=== PATIENT | female | born 1965 | race Caucasian/White ===

== ENCOUNTER 2019-03-14 08:37 | Inpatient (IN) ==
[2019-03-14] MEDS ORDERED: TORADOL IV ONE (09:20)
[2019-03-14] MEDS ORDERED: NS 500 ML IV ONE (09:20)
[2019-03-14] MEDS ORDERED: CLINDAMYCIN 600 MG/D5W 600 MG/50 ML IVPB IV ONE (09:20)
--- NOTE | 2019-03-14 09:50 | EKG Report ---
Test Performed on : 03/14/2019 08:49:47 AM Test Reason : tachycardia Blood Pressure : / mmHG Vent. Rate : 113 BPM Atrial Rate : 113 BPM P-R Int : 148 ms QRS Dur : 084 ms QT Int : 302 ms P-R-T Axes : 046 -04 050 degrees QTc Int : 414 ms Sinus tachycardia. Possible Left atrial enlargement Borderline ECG No previous ECGs available Unconfirmed Result
[2019-03-14 10:01] LABS: BASO# 0.03 X1000 (0.0-0.2); BASO% 0.2 % (0.0-0.8); EOS# 0.19 X1000 (0.0-0.7); EOS% 1.1 % (0.0-10.0); HEMATOCRIT 39.9 % (37.0-47.0); HEMOGLOBIN 12.2 g/dL (12.0-16.0); IMM GRAN# 0.05 X1000 (0.0-0.04); IMM GRAN% 0.3 % (0.0-0.5); LYMPH# 1.73 X1000 (1.2-3.4); LYMPH% 10.2 % (20.5-51.1); MCH 26.7 PG (27-31); MCHC 30.6 g/dL (33-37); MCV 87.3 FL (81-99); MPV 11.1 FL (7.4-10.4); NEUT# 13.83 X1000 (1.4-6.5); NEUT% 81.2 % (42.2-75.2); PLT 260 X1000 (130-400); RBC 4.57 XMIL (4.2-5.4); RDW 14.8 % (11.5-14.5); WBC 17.03 X1000 (4.8-10.8)
[2019-03-14 10:41] LABS: AGAP 14; ALKALINE PHOSPHATASE 81 U/L (32-104); BUN 6 mg/dL (8-22); CALCIUM 9.2 mg/dL (8.8-10.2); CHLORIDE 105 mmol/L (98-107); COSMO 281; CREATININE 0.7 mg/dL (0.5-0.9); ESTIMATED GFR > 60; GLUCOSE 110 mg/dL (70-104); GOT 15 U/L (10-30); GPT 12 U/L (10-36); SODIUM 142 mmol/L (136-145); TCO2 24 mmol/L (25-35); TOTAL PROTEIN 7.9 g/dL (6.3-8.3)
[2019-03-14 10:42] LABS: MAGNESIUM 1.7 mg/dL (1.5-2.7)
[2019-03-14 10:47] LABS: URINE SOURCE CLEAN CATCH
[2019-03-14 10:58] LABS: BILIRUBIN URINE NEGATIVE (NEGATIVE); BLOOD URINE SMALL (NEGATIVE); COLOR YELLOW; GLUCOSE URINE NEGATIVE (NEGATIVE); KETONE URINE NEGATIVE (NEGATIVE); LEUKOCYTES URINE NEGATIVE (NEGATIVE); NITRITE URINE NEGATIVE (NEGATIVE); PH URINE 6.5; PROTEIN URINE TRACE mg/dL (NEGATIVE); SP GRAVITY URINE 1.018; TURBIDITY URINE CLEAR (CLEAR); UR EPITHELIAL CELLS <10 /HPF (<10); URINE BACTERIA NEGATIVE /HPF; URINE RBC <10 /HPF (<10); URINE WBC <10 /HPF (<10); UROBILINOGEN URINE NORMAL (NORMAL)
[2019-03-14 11:02] LABS: INR 0.97; PROTIME 13.4 Seconds (11.0-16.0)
[2019-03-14 11:03] LABS: PTT 30.6 Seconds (22.3-41.8)
--- NOTE | 2019-03-14 11:21 | Diag Imaging Result Doc PS360 ---
EXAM: CT ABD/PELVIS W/IV CONT ONLY HISTORY: pelvic cellulitis TECHNIQUE: CT abdomen and pelvis with intravenous contrast, but without oral contrast. COMPARISON: None. FINDINGS: No calcified gallstones or adjacent inflammation. No hepatic abnormality. Normal spleen, pancreas, and adrenal glands. Small area of scarring to the right kidney. Small left renal cysts. No hydronephrosis. Moderate atherosclerosis. No aortic aneurysm. Normal appendix. No inflammation about the cecum and appendix. No bowel obstruction. There is stool throughout the colon. The urinary bladder is not distended. Normal uterus and ovaries. There is subcutaneous edema and inflammation with skin thickening in the anterior left pelvic region. No well-defined fluid collection. No air within this. There are several small left inguinal lymph nodes. IMPRESSION: 1.Cellulitis in the superficial fat of the left anterior pelvic region 2.Mild constipation This exam was performed using automated exposure control, adjustment of mA or kV according to patient size, and/or use of iterative reconstruction technique. Electronically signed by Leonardo Pacheco 03/14/2019 11:19 AM
--- NOTE | 2019-03-14 12:58 | PROVIDER DOCUMENTATION ---
This chart was entered by Aster Baron Scribe, acting as scribe for Holly Juan CRNP. HPI-General Adult - General Chief Complaint: Groin Pain Stated Complaint: RADHA ON GROIN Time Seen by Provider: 03/14/19 08:43 Source: patient Allergies/Adverse Reactions: Patient Allergies Allergy/AdvReac Type Severity Reaction Status Date / Time No Known Allergies Allergy Verified 03/14/19 08:44 - History of Present Illness -Gen Adult Nature of Presenting Problems: 53yof presents to ED cc pain, swelling, and erythema to left groin area since . Denies fever or any other complaints. Pt non-toxic in appearance. Location of Pain/Injury: reports: genitalia (left groin area) Quality of Pain: reports: aching Severity: reports: moderate Onset/Duration: reports: 5 days ago Timing: reports: still present Modifying Factors: improves with: nothing Associated Symptoms: reports: denies symptoms Similar Symptoms Previously?: No Recently seen or treated by another doctor?: No Review of Systems - Adult - REVIEW OF SYSTEMS - ADULT Constitutional: reports: no symptoms reported. denies: chills, fever, fatique Eyes: reports: no symptoms reported Ears, Nose, Mouth & Throat: reports: no symptoms reported Cardiovascular: reports: no symptoms reported Respiratory: reports: no symptoms reported Gastrointestinal: reports: no symptoms reported. denies: diarrhea, nausea, vomiting Genitourinary: reports: no symptoms reported Musculoskeletal: reports: no symptoms reported Integumentary: reports: see HPI, other (pain and erythema to left groin area) Neurological: reports: no symptoms reported Psychiatric: reports: no symptoms reported Endocrine: reports: no symptoms reported Hematologic/Lymphatic: reports: no symptoms reported Allergic/Immunologic: reports: no symptoms reported All Other Systems: Reviewed and Negative Past History - Adult - PAST MEDICAL HISTORY-ADULT Review of Records: reports: Nursing Assessment Review, Medications Reviewed, Social history reviewed & non-contributory. Major Childhood Illnesses: reports: denies history Cardiovascular: reports: denies history Respiratory: reports: denies history Gastrointestinal: reports: denies history Obstetrical/Gynecological: reports: denies history Genitourinary: reports: denies history Musculoskeletal: reports: denies history Neurological: reports: denies history Endocrine/Immune: reports: denies history Other Conditions: reports: denies history - PRIOR SURGERIES/PROCEDURES Surgical/Procedure History: reports: reviewed, not pertinent - IMMUNIZATION STATUS Childhood Immunizations: See Nurse Assessment Flu Vaccine: See Nurse Assessment - FAMILY HISTORY Family History: reviewed, not pertinent - SOCIAL HISTORY Smoking: cigarettes, greater than 1 pack/day Provider spent 3-5 mins advising pt. on dangers of tobacco.: Discussed manners to quit use, and f/u contacts for add'l counseling. Physical Exam-General - PHYSICAL EXAM-ADULT Initial Vital Signs Reviewed: Yes - CONSTITUTIONAL General Appearance: alert, no apparent distress. negative: anxious, lethargic, slow to respond - EYES Eyes: PERRL/EOMI, pink conjunctivae - HEAD, EARS, NOSE, MOUTH & THROAT HENMT: normocephalic/atraumatic, moist mucous membranes - NECK Neck: full range of motion, supple, normal inspection - RESPIRATORY Respiratory: chest non-tender, lungs clear, normal breath sounds, no pleuratic chest pain, no respiratory distress, no accessory muscle use. negative: str idor, wheezing - CARDIOVASCULAR Cardiovascular: normal peripheral pulses, regular rate, rhythm, no edema, tachycardia. negative: bradycardia - GASTROINTESTINAL (ABDOMEN) Abdominal Exam: normal bowel sounds, non tender, soft - GENITOURINARY Female Genitalia/Pelvic Exam: other (swelling/erythema left groin area that measures 5in wx 3in h with erythema and pustule in the center of area) - MUSCULOSKELETAL Back Exam: normal inspection Extremity: normal range of motion, normal gait, normal inspection, erythema (see note above) - SKIN Integumentary: normal color, warm/dry, erythema (left groin area), tenderness (left groin area). negative: diaphoresis, jaundice - NEUROLOGIC Neurologic: grossly normal, no motor/sensory deficits - PSYCHIATRIC Psych/Mental Status: normal mood/affect, normal thought content, normal thought process, oriented x 3. negative: anxious, disheveled Progress - PLAN OF CARE/RESULTS Progress/Plan/Lab Results: Vital Signs - 8 hr 03/14/19 08:39 Temperature 97.9 F Pulse Rate 127 H Respiratory Rate 18 Blood Pressure 180/113 O2 Sat by Pulse Oximetry 96 Orders Category Date Time Status Cardiac Monitoring DIRECTED Care 03/14/19 08:45 Active EKG [EKG] Stat Ther 03/14/19 08:44 Ordered Result Diagrams: 03/14/19 09:43 03/14/19 09:43 - EKG 1 Time of EKG reading by physician:: 08:54 EKG Read and Signed by:: Vinay Duncan EKG Interpretation (*Must complete 3 of following elements*): Abnormal (possible left atrial enlargement) Rate: 113 Rhythm: Sinus Tachy QRS: normal CO Interval: normal - CT/MRI 1 CT Study: Abdomen, Pelvis Impression: See EMR Report (IMPRESSION: 1.Cellulitis in the superficial fat of the left anterior pelvic region 2.Mild constipation This exam was performed using automated exposure control, adjustment of mA or kV according to patient size, and/or use of iterative reconstruction technique. Electronically signed by Leonardo Pacheco 03/14/2019 11:19 AM) - CONSULTS/PCP/HOSPITALIST Notification #1 *Consult/PCP/Hospitalist*: Dr. Conley Time Discussed: 12:54 Reason/Comments: admission- left groin cellulitis Consult Disposition: Will see in ED, Admit Departure - Departure Date of Disposition Decision: 03/14/19 Time of Disposition Decision: 12:54 DIAGNOSIS: Cellulitis Qualifiers: Site of cellulitis: extremity Site of cellulitis of extremity: lower extremity Laterality: left Qualified Code(s): L03.116 - Cellulitis of left lower limb Disposition: ADMITTED INPATIENT 09 Certified Medical Emergency: Emergent Condition: Stable Additional Instructions: ED Follow Up Instructions: You have been treated by a care provider in the Emergency Department. These instructions are being provided to you so you can have an understanding of how to care for yourself upon discharge. Upon discharge from the Emergency Department, you are responsible for making arrangements for follow-up care by a physician of your choice. Take all prescribed medications as directed. Return to the Emergency Department immediately for any new or worsening symptoms. You may call the Physician Referral phone number at [phone] to obtain a list of Physicians who are taking new patients. Referrals and Follow-Ups: None,PCP [Primary Care Provider] - Discharge Education: Steps to Quit Smoking, [id number], Cellulitis, Adult, [id number] - Critical Care Note This patient required my direct & personal management of CC.: No Attestation - Physician/ MARTHA Attestation Patient care was provided by Advanced Practice Provider:: Yes Advanced Practice Provider:: Holly Juan Advanced Practice Provider documentation review:: The Mid-level provider documentation, treatment plan and medical decision making was reviewed by the physician who agrees with all treatment and medical decision making by the MLP. The physician spent face to face time with patient:: No Advanced Practice Provider documentation review:: Supervising physician onsite and consulted in the evaluation and care of this patient. The physician did not have a face to face encounter with the patient. This chart was documented by the indicated scribe, (Aster Baron Scribe) and accurately reflects the services I performed and decisions made by , Holly Conn, BANDAR, as attested by the provider's signature.
[2019-03-14] MEDS ORDERED: TYLENOL PO PRN (13:31)
[2019-03-14] MEDS ORDERED: ZOFRAN IV PRN (13:31)
[2019-03-14] MEDS ORDERED: VANCOMYCIN IV PER PHARMACY MISC SCH (13:45)
[2019-03-14] MEDS: NS 1,000 ML IV SCH (13:56)
[2019-03-14] MEDS: NORCO-7.5 PO PRN ×2 (13:56→21:28)
[2019-03-14] MEDS: ZOSYN 3.375 GM in NS 50 ML IV SCH ×2 (13:57→20:06)
[2019-03-14] MEDS ORDERED: MIRALAX PO ONE (14:42)
[2019-03-14] MEDS ORDERED: VANCOMYCIN 2,000 MG in NS 500 ML IV ONE (15:00)
--- NOTE | 2019-03-14 15:12 | HISTORY AND PHYSICAL ---
PRIMARY CARE PHYSICIAN: None. CHIEF COMPLAINT: Left groin cellulitis. HISTORY OF PRESENT ILLNESS: Ms. Arreola is a 53-year-old, female who presents today to the ER with complaints of left groin pain that started approximately 4 days ago. The patient started noticing that she started having pain to her left groin area. She also noticed a large reddened area that was edematous. She has also been having fever and chills, headache, and a cough. The patient subsequently decided to come to the ER at this time. The patient denies any congestion, dizziness neck pain, excessive thirst, chest pain, palpitations, orthopnea, PND, dyspnea, nausea, vomiting, diarrhea, constipation, dysuria, hematuria, muscle pain or weakness, syncope, or any other pertinent symptoms at this time. REVIEW OF SYSTEMS: A 10-point review of systems has been obtained. All are negative except what is stated above in the HPI. PAST MEDICAL HISTORY: None. PAST SURGICAL HISTORY: Tubal ligation. FAMILY HISTORY: Mom, diabetes and hypertension. Father, diabetes and hypertension. SOCIAL HISTORY: The patient lives in [place], [place]. She works in [employer]. She smokes a half a pack of cigarettes per day and has for greater than 30 years. She denies any alcohol or illicit drug use. She denies any use of oxygen, CPAP, or BiPAP use. PHARMACY: [facility] in [place]. ALLERGIES: No known drug allergies. HOME MEDICATIONS: None. PHYSICAL EXAMINATION: VITAL SIGNS: Temperature 100.2 degrees, pulse rate 118, respiratory rate 20, blood pressure 131/70, O2 saturation 100% on room air. GENERAL: This is a 53-year-old, female. She is lying on the ER stretcher. She is well nourished and well developed. She is in somewhat acute distress from pain to the left groin. HEENT: Atraumatic, normocephalic. Pupils equal, round, reactive to light. Mucous membranes are moist. NECK: Supple. No lymphadenopathy. Trachea midline. No JVD. CV: Regular rate and rhythm. No murmurs, gallops, or rubs appreciated. RESPIRATORY: Lung sounds clear. Equal chest excursion. Respirations nonlabored. No accessory muscle usage. GI: Abdomen was soft, nontender, nondistended. Bowel sounds present x4. : There is severe tenderness noted to the left side of the groin. The patient is voiding without difficulty. NEUROLOGIC: The patient is awake, alert, oriented, and able to follow all commands appropriately. MUSCULOSKELETAL: Full distal strength noted. No abnormalities. No deformities. EXTREMITIES: No clubbing. No cyanosis. There is edema noted to the left groin. DP and PT pulses are present and palpable. SKIN: Warm, dry. There is a large amount of edema and erythema noted to the left groin area. There is no diaphoresis. LABS/DIAGNOSTICS: White blood cell count 17.03, hemoglobin 12.2, hematocrit 39.9, platelet count 260,000. Sodium 142, potassium 4.0, carbon dioxide 24, BUN 6, creatinine 0.7, estimated GFR greater than 60, glucose 110, magnesium 1.7. CT of the abdomen and pelvis does show a cellulitis in the superficial fat of the left anterior pelvic region, and does show mild constipation. ASSESSMENT: 1. Left groin cellulitis. 2. Leukocytosis. 3. Dehydration. 4. Constipation. 5. Tobacco dependency. PLAN: We will admit this patient to the medical floor. We will start this patient on IV fluid hydration. We are going to consult surgery. Dr. Pearson is on-call. He has been notified by Dr. Colney. We will start this patient on vancomycin and Zosyn IV. We will repeat lactates per protocol. We will provide this patient with [place] for pain and Tylenol for fever. We will give her Zofran p.r.n. for nausea. I will start her on a regular diet as tolerated. A routine culture was ordered of her groin wound. I will place her on water well driller, provide her with supplemental O2, vital signs q.4, SCDs for DVT prophylaxis, Prilosec for gastrointestinal prophylaxis. I provided 5 minutes of smoking cessation information and I have provided her with a nicotine patch. I have started her on MiraLAX daily for her constipation. I have ordered repeat labs for in the morning. All other further treatment pending hospital course and laboratory data. Dictated by BANDAR Melendrez for Elmer Conley MD cc: Elmer Conley MD
[2019-03-14] MEDS: NICODERM PATCH TD SCH (16:53)
--- NOTE | 2019-03-14 19:07 | GENERAL SURGERY CONSULTATION ---
DATE: 03/14/2019 REQUESTING PHYSICIAN: Dr. Conley. REASON FOR CONSULTATION: Left groin abscess. HISTORY OF PRESENT ILLNESS: A 53-year-old female who presented to the emergency department with left groin pain starting 4 days prior to presentation. She had noted some erythema and redness in the area. She had a CT scan that showed cellulitis. Prior to me visiting and evaluating her, she had some spontaneous drainage of purulence. She denies any other symptoms at this point. She does have tenderness in this area. PAST MEDICAL HISTORY: None. PAST SURGICAL HISTORY: Tubal ligation. SOCIAL HISTORY: Current smoker. ALLERGIES: None. HOME MEDICATIONS: In the MAR and reviewed. FAMILY HISTORY: Positive for diabetes and hypertension. REVIEW OF SYSTEMS: A full 14 systems reviewed and negative except as specified in HPI. PHYSICAL EXAMINATION: Vital Signs: Patient is currently afebrile. Her vital signs are stable. General: No acute distress. Alert and interactive female looks stated age. HEENT: Normocephalic, atraumatic. Pupils equal, round, and reactive to light. Mucous membranes moist. Oropharynx benign. Neck: Supple. Trachea midline. Cardiovascular: Regular rate and rhythm. Lungs: Grossly clear. Abdomen: Soft, nontender, nondistended. Pelvic: Groin, evaluated with air carrier inspector guidance. There is an area in the left groin with erythema, induration, and some spontaneous drainage of purulence. Extremities: Moves all extremities. Neurologic: Grossly intact. Skin: No signs of jaundice. Vascular: All extremities perfused. LABORATORY: White blood cell count 17, hematocrit 39, and platelet count 260,000. Remainder of labs reviewed. CT scan independently reviewed and radiology report reviewed. ASSESSMENT AND PLAN: A 53-year-old female with left groin abscess. Left groin abscess. At this time, it is spontaneously draining. We will keep warm compresses to the area. We will continue to monitor and try to express more purulence and monitor how she does. We did send the wound off for culture. cc: Reggie Pearson MD
--- NOTE | 2019-03-14 19:53 | HISTORY AND PHYSICAL ---
ADDENDUM: The patient was seen and examined by myself. Full note dictated and discussed with nurse practitioner. Patient presented to the hospital with left-sided groin pain. She states that 3 days ago she started noting some pain and swelling in her left groin region. Today it became severe, unrelenting and she reports she came to the hospital. She does have a very tender area. Hard to truly examine due to her current pain. We are going to admit to the hospital, place her on antibiotics and we will ask surgery to evaluate and see if drainage is possible. cc: Elmer Conley MD
[2019-03-15] MEDS: NS 1,000 ML IV SCH ×3 (03:23→14:14)
[2019-03-15] MEDS: ZOSYN 3.375 GM in NS 50 ML IV SCH ×4 (03:24→20:39)
[2019-03-15] MEDS: NORCO-7.5 PO PRN ×3 (05:29→20:39)
--- NOTE | 2019-03-15 06:31 | GENERAL SURGERY PROGRESS NOTE ---
DATE: 03/15/2019 SUBJECTIVE: Patient is feeling better. OBJECTIVE: Vital Signs: Patient is currently afebrile. Her vital signs are stable. General: No acute distress. Cardiovascular: Regular rate and rhythm. HEENT: Normocephalic, atraumatic. Pupils equal, round, reactive to light. Mucous membranes moist. Oropharynx benign. Neck: Supple. Trachea midline. Lungs: Grossly clear. Abdomen: Soft, nontender. Left groin area seems to be improving. Erythema is improving. There is less drainage, less induration. Extremities: Moves all extremities. Neurologic: Grossly intact. Skin: As noted above. Vascular: All extremities perfused. LABORATORY: Pending from this morning. Gram stain also appears to be pending. ASSESSMENT AND PLAN: A 53-year-old female with left groin abscess. Left groin abscess. At this time, it spontaneously drained but we will continue to monitor. The erythema seems to be improving so we will keep her on the broad-spectrum antibiotics until we get further speciation. cc: Reggie Pearson MD
[2019-03-15] MEDS: PRILOSEC PO SCH (06:32)
[2019-03-15 07:10] LABS: HEMATOCRIT 33.5 % (37.0-47.0); HEMOGLOBIN 9.9 g/dL (12.0-16.0); MCHC 29.6 g/dL (33-37); MCV 87.9 FL (81-99); MPV 10.8 FL (7.4-10.4); RBC 3.81 XMIL (4.2-5.4); WBC 14.2 X1000 (4.8-10.8)
[2019-03-15 07:26] LABS: AGAP 11; BUN 6 mg/dL (8-22); CALCIUM 8.5 mg/dL (8.8-10.2); CHLORIDE 108 mmol/L (98-107); COSMO 283; CREATININE 0.7 mg/dL (0.5-0.9); ESTIMATED GFR > 60; GLUCOSE 108 mg/dL (70-104); POTASSIUM 3.6 mmol/L (3.5-5.1); SODIUM 143 mmol/L (136-145); TCO2 24 mmol/L (25-35)
[2019-03-15] MEDS: MIRALAX PO SCH (08:40)
[2019-03-15] MEDS: NICODERM PATCH TD SCH (08:40)
[2019-03-15] MEDS: VANCOMYCIN 1,700 MG in NS 250 ML IV SCH (11:43)
[2019-03-16] MEDS: ZOSYN 3.375 GM in NS 50 ML IV SCH ×4 (01:13→22:05)
[2019-03-16] MEDS: NS 1,000 ML IV SCH ×4 (01:13→13:40)
[2019-03-16] MEDS: VANCOMYCIN 1,700 MG in NS 250 ML IV SCH ×2 (02:11→22:07)
[2019-03-16] MEDS: NORCO-7.5 PO PRN ×3 (02:15→22:32)
[2019-03-16 06:01] LABS: AGAP 12; ALKALINE PHOSPHATASE 58 U/L (32-104); BUN 4 mg/dL (8-22); CALCIUM 8.2 mg/dL (8.8-10.2); CHLORIDE 111 mmol/L (98-107); COSMO 285; CREATININE 0.6 mg/dL (0.5-0.9); ESTIMATED GFR > 60; GLUCOSE 121 mg/dL (70-104); GOT 12 U/L (10-30); GPT 12 U/L (10-36); MAGNESIUM 1.8 mg/dL (1.5-2.7); POTASSIUM 3.5 mmol/L (3.5-5.1); SODIUM 144 mmol/L (136-145); TCO2 21 mmol/L (25-35); TOTAL BILIRUBIN < 0.15 mg/dL (0.20-1.00)
[2019-03-16 06:11] LABS: HEMATOCRIT 31.2 % (37.0-47.0); HEMOGLOBIN 9.3 g/dL (12.0-16.0); MCH 26.3 PG (27-31); MCHC 29.8 g/dL (33-37); MCV 88.4 FL (81-99); MPV 10.7 FL (7.4-10.4); RBC 3.53 XMIL (4.2-5.4); RDW 14.7 % (11.5-14.5); WBC 10.04 X1000 (4.8-10.8)
--- NOTE | 2019-03-16 07:59 | PROGRESS NOTE ---
DATE: 03/16/2019 SUBJECTIVE: The patient notes that her left groin area is actually improving. States that it popped and started draining significantly on its own. OBJECTIVE: Vital Signs: Temp 96.9, pulse 77, respiratory rate 18, BP 128/72. General: The patient is very pleasant. She is in no distress. HEENT: Normocephalic. Neck: Supple. Cardiovascular: Regular rate. Chest: Clear. Abdomen: Soft. Extremities: Moves all extremities. Skin: Her left groin area is still swollen, but much less tender, much less indurated. ASSESSMENT: 1. Left groin cellulitis. 2. Chronic tobacco abuse. 3. Leukocytosis. PLAN: Will continue antibiotics, vancomycin and Zosyn, until culture returns. Again discussed with the patient the perils of smoking. cc: Elmer Conley MD
[2019-03-16] MEDS: MIRALAX PO SCH (10:29)
[2019-03-16] MEDS: NICODERM PATCH TD SCH (10:29)
[2019-03-16] MEDS: PRILOSEC PO SCH (10:30)
--- NOTE | 2019-03-16 10:36 | GENERAL SURGERY PROGRESS NOTE ---
DATE: 03/16/2019 SUBJECTIVE: The patient seems to be doing okay. She is able to express some in the shower. Overall, the area is getting better. OBJECTIVE: Vital Signs: The patient is currently afebrile. Her vital signs stable. General: On exam, in no acute distress. HEENT: Normocephalic, atraumatic. Pupils equal, round, react to light. Mucous membranes moist. Oropharynx benign. Neck: Supple. Trachea midline. Cardiovascular: Regular rate and rhythm. Lungs: Grossly clear. Abdomen: Soft, nontender, nondistended. Extremities: Left groin area seems to be improving as far as erythema and induration. Still draining some purulence serosanguineous fluid. She moves all extremities. Neurologic: Grossly intact. Skin: No signs of jaundice, but wound as noted above. Vascular: All extremities perfused. LABORATORY DATA: White blood count is now normal, hematocrit 32, platelet count 230,000. Remainder of labs reviewed. ASSESSMENT AND PLAN: A 53-year-old female with left groin abscess. Left groin abscess: At this time, I think she could probably be transitioned over to oral antibiotics. Her white blood cell count returned to normal. She would probably do well with something like clindamycin or Bactrim, but we will continue to monitor her while she is in the hospital and continue local wound care. cc: Reggie Pearson MD
--- NOTE | 2019-03-16 22:12 | PROGRESS NOTE ---
DATE: 03/16/2019 SUBJECTIVE: The patient notes that her left inguinal region has much less tenderness. Still draining copious amounts of fluid. PHYSICAL EXAM: Vital signs: Temperature 97.8, pulse 71, respiratory 20, BP 138/71. General: Patient is a very pleasant female who is in no current distress. HEENT: Normocephalic. Neck: Supple. Cardiovascular: Regular rate. Chest: Clear. Abdomen: Soft. Extremities: Moves all extremities. Skin: Left inguinal region is draining. It is color depositing machine tender, but much less indurated. ASSESSMENT: 1. Left groin cellulitis. 2. Leukocytosis, resolved. White count from 14 down to 10. 3. Anemia of chronic disease. 4. Chronic tobacco abuse. PLAN: We are going to continue antibiotics until culture results and then hopefully if possible can transition her home on oral antibiotics. The patient understands and will continue to follow up cc: Elmer Conley MD MTDD
[2019-03-17] MEDS: NS 1,000 ML IV SCH ×2 (00:15→08:49)
[2019-03-17] MEDS: ZOSYN 3.375 GM in NS 50 ML IV SCH (02:15)
[2019-03-17] MEDS: PRILOSEC PO SCH (06:57)
[2019-03-17 08:05] VITALS: BP 137/70
[2019-03-17] MEDS: NICODERM PATCH TD SCH (08:47)
[2019-03-17] MEDS: MIRALAX PO SCH (08:48)
--- NOTE | 2019-03-17 09:19 | GENERAL SURGERY PROGRESS NOTE ---
DATE: 03/17/2019 SUBJECTIVE: Patient seems to be doing okay. Less drainage from her groin. OBJECTIVE: Vital Signs: The patient is currently afebrile. Her vital signs are stable. General Examination: No acute distress. HEENT: Normocephalic, atraumatic. Pupils equal, round, reactive to light. Mucous membranes moist. Oropharynx benign. Neck: Supple. Trachea midline. Cardiovascular: Regular rate and rhythm. Lungs: Grossly clear. Abdomen: Soft, nontender, nondistended. Left Groin: Overall, the erythema seems to be improving. There is still an area of induration but no fluctuance. Still somewhat tender to palpation. Extremities: Moves all extremities. Neurologic: Grossly intact. Skin: As noted above. Vascular: All extremities perfused. Laboratory: Laboratory shows Staphylococcus aureus but it is sensitive to clindamycin and Bactrim. ASSESSMENT AND PLAN: A 53-year-old female with a left groin abscess. Left groin abscess. At this time, I think she can probably transition to Bactrim or clindamycin, and sent home. She is to continue warm compresses to the area and see me back in the office next week. cc: Reggie Pearson MD
[2019-03-17] MEDS ORDERED: VANCOMYCIN 1,700 MG in NS 250 ML IV SCH (10:00)
--- NOTE | 2019-03-18 11:07 | DISCHARGE SUMMARY ---
ADMISSION DATE: 03/14/2019 DISCHARGE DATE: 03/17/2019 ADMITTING DIAGNOSES: 1. Left groin cellulitis. 2. Leukocytosis. 3. Dehydration. 4. Constipation. 5. Tobacco dependency. DISCHARGE DIAGNOSES: 1. Left groin cellulitis. 2. Anemia of chronic disease. 3. Chronic tobacco abuse. PROCEDURES/FINDINGS: 1. CT of the abdomen and pelvis done on 03/14/2019 shows cellulitis in the superficial fat of the left anterior pelvic region and mild constipation. 2. A routine culture of the left groin wound shows Staphylococcus aureus with great susceptibility to clindamycin. HOSPITAL COURSE: Ms. Arreola is a 53-year-old female who presented to the ER with complaints of edema and erythema to the left groin, with fever, chills, headache, and a cough for approximately 4days. The patient was noted to have a large left groin cellulitis. The patient was admitted to the medical floor. Prior to admission to the medical floor the wound did rupture spontaneously and start draining a large amount of fluid. Surgery was consulted. Dr. Pearson did see the patient. Routine culture of the wound was obtained. The patient was started on vancomycin and Zosyn. Culture did grow out Staphylococcus aureus. Warm compresses were placed on the wound. The wound has decreased in drainage. Over the past few days and patient is feeling much better. She is not having any more fevers. She is being discharged home today. The patient will be discharged on clindamycin. She will follow up with Dr. Pearson next week in the office. She will continue to have warm compresses placed to her wound several times a day. DISCHARGE MEDICATIONS: 1. Clindamycin 300 mg p.o. t.i.d. 2. Probiotic 250 mg p.o. daily. 3. Hydrocodone 7.5/325 1 tablet q.12 hours p.r.n. DISCHARGE PLAN: The patient is to discharge home with self care. She is to follow up with Reggie Ventura next week. She will need to call his office and make an appointment at [phone]. She will need to continue warm compresses several times a day to her wound. She will need to continue her antibiotic until all is gone. 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 Reggie Pearson. Dictated by BANDAR Melendrez for Elmer Conley MD cc: MD Reggie Glez MD [facility]
--- NOTE | 2019-03-18 19:31 | DISCHARGE SUMMARY ---
ADMISSION DATE: 03/14/2019 DISCHARGE DATE: 03/17/2019 ADDENDUM: Patient seen and examined by myself. Full note dictated and discussed with nurse practitioner. Patient presented to the hospital with the inguinal abscess that thankfully opened and drained on its own. It currently is growing methicillin-resistant Staphylococcus aureus. We are going to discharge her home on clindamycin. She will follow up outpatient in 1 week. cc: Elmer Conley MD
== END 2019-03-17 11:51 | disposition home or self-care (01) | DRG 603 ==
LOC: P.ED 08:37 → P.MEDSURG 15:45
PROVIDERS: ATTEND Family Medicine